=== PATIENT | male | born 1975 | race Caucasian/White ===

== ENCOUNTER → 2020-12-22 09:19 | Outpatient (CLI) | payer BC, SELFPAY ==
--- NOTE | 2020-12-22 09:23 | CA_ITS ---
APPROVED REPORT Exam: Exercise Treadmill Technologist: Janet Ba, Ht: 6 ft 2 in Wt: 247 lbs BSA: 2.38 m2 HR: 82 bpm BP: 145/90 mmHg Medical History Medications: Aspirin,,,,, Metformin,,,,, Losartan,,,,, BisOPROLOL,,,,, Stress Test Details Test: Paul HR Resting HR: 78 bpm Max Heart Rate (APMHR): 177.972565 bpm Max HR Achieved: 138 bpm Target HR (85% APMHR): 150.011166 bpm % of APMHR: 77.97 Recovery HR: 85 bpm BP Resting BP: 133/82 mmHg Max BP: 158/110 mmHg Recovery BP: 137.0/79.0 mmHg ECG Clinical Exercise duration: 09:57 min Highest Stage Achieved: Exercise capacity: 12.8 METs Stress ECG Conclusion Symptoms: No CP. SOA noted @ peak exercise. Arrythmias/Ectopy: none ST-T Changes: <1.5mm ST segment changes. Electronically signed by : Eugene Lopez, 12/22/2020 18:41:08
--- NOTE | 2020-12-22 09:23 | CA_ITS ---
APPROVED REPORT EXAM: Comprehensive 2D, Doppler, and color-flow Echocardiogram Returned Goods Inspector: Jocelin García RT(R) Ht: 6 ft 2 in Wt: 247lbs BSA: 2.38 BP: 130/80 mmHg Indications: CP, murmur, smoker, SOB, tachycardia, Abn EKG, obesity, HTN 2D Dimensions LVOT 2.08 cm (M/F) 1.5-2.5 LVEF (Quinones's) 55.30 % M: 52 - 72 LV Volume 85.30 mL M: 62 - 150 LV Volume Index 35.99 mL/m2 M: 34 - 74 LA Volume 30.10 mL LA Volume Index 12.70 mL/m2 (M/F) 16-34 M-Mode Dimensions RVDd 2.90 cm (0.9-2.6) LA Diam 3.39 cm (1.9-4.0) LVDd 4.10 cm (3.5-5.7) Ao Diam 2.99 cm (2.0-3.7) LVDs 3.06 cm (3.5-5.7) IVSd 1.17 cm (0.6-1.1) PWd 0.89 cm (0.6-1.1) EF (Teich) 50.50% FS 25.40% EDV (Teich) 74.20 mL ESV (Teich) 36.70 mL LV Diastology E Decel Time 170.00 (160-240 msec) E/A Ratio 1.0 MED E' 7.80 (< 7 cm/sec) E'/MED E' Ratio 7.91 (>14) LAT E' 11.30 (<10 cm/sec) E/LAT E' Ratio 5.46 (>14) Mitral Valve MV E Max Mario. 62.00 (40-130 cm/s) MV A Velocity 60.00 (40-130 cm/s) E/A Ratio 1.02 MV Decel. Time 170.00 (160-240 ms) MV PHT 50.00 ms Left Ventricle Left atrium normal size, left ventricle is normal size, there is no concentric left ventricular hypertrophy, visually estimated ejection fraction 55% with no regional wall motion abnormality, diastolic parameters are within normal range. Right Ventricle Right atrium and right ventricle are normal size and contractility. Aortic Valve Aortic valve is grossly normal, there is no aortic stenosis or aortic insufficiency. Mitral Valve Mitral valve grossly normal, there is trace mitral regurgitation. Tricuspid Valve Tricuspid valve grossly normal, there is trace tricuspid regurgitation, tricuspid regurgitation jet velocity is inadequate for calculation of the right ventricular systolic pressure. Pulmonic Valve Pulmonic valve is poorly visualized. Great Vessels Aortic root is normal size. Pericardium No significant pericardial effusion noted. Conclusion 1. Normal left ventricular size, preserved left ventricular systolic function, visually estimated ejection fraction 55% with no regional wall motion abnormality, diastolic parameters are within normal range. 2. Trace mitral and tricuspid regurgitation. 3. No significant pericardial effusion noted. Electronically signed by : Eugene Lopez, 12/22/2020 12:46:19
== END ==
LOC: RT 09:23
PROVIDERS: PCP Family Medicine; Visit Provider Nurse Practitioner Family
DX: R07.9 Chest pain, unspecified (principal); R06.00 Dyspnea, unspecified; R00.0 Tachycardia, unspecified; R01.1 Cardiac murmur, unspecified; R94.31 Abnormal electrocardiogram [ECG] [EKG]; I10 Essential (primary) hypertension; Z72.0 Tobacco use
CPT/HCPCS: 93017; 93306